=== PATIENT | female | born 1940 | race Caucasian/White ===

== ENCOUNTER 2017-04-16 08:07 | Emergency (ER) | payer MEDICARE ==
[~2017-04-16] VITALS: Ht 170.2 cm; Wt 60.9 kg
[2017-04-16] MEDS ORDERED: OMEPRAZOLE10 MG PO (08:28)
[2017-04-16] MEDS ORDERED: ASPIRIN ADULT L81 M2 PO (08:29)
[2017-04-16] MEDS ORDERED: D32000 UNIT PO (08:29)
[2017-04-16] MEDS ORDERED: MULTI VIT PO (08:30)
[2017-04-16] MEDS ORDERED: MAGIMIN80 MG PO (08:30)
[2017-04-16 08:33] LABS: HEMATOCRIT 40.1 % (37.0-47.0); HEMOGLOBIN 13.5 g/dl (12.0-16.0); IMMATURE GRANULOCYTES 0.4 % (0.0-1.0); MEAN CELL VOLUME 92.2 fL CALC (80.0-100.0); MEAN CORPUSCULAR HGB CONC 33.7 g/L CALC (32.0-36.0); NEUT# 5.19 thou/uL (2.00-7.15); RED BLOOD COUNT 4.35 mill/uL (4.20-5.60); RED CELL DISTRI WIDTH 12.5 % (11.5-15.5)
[2017-04-16 08:45] LABS: ALBUMIN 4.3 g/dL (3.2-5.0); ALKALINE PHOSPHATASE 98 u/l (38-126); ANION GAP 16 (6-22 (CALC)); BILIRUBIN, TOTAL 0.7 mg/dL (0.0-1.4); BUN 10 mg/dL (8-23); BUN/CREATININE RATIO 14 (12-20 (CALC)); CARBON DIOXIDE 29 mmol/l (22-30); CHLORIDE 104 mmol/l (95-108); CREATININE 0.7 mg/dL (0.5-1.0); GFR > 60 ML/MIN (>=60 (CALC)); GFR FOR AFR.AMER. > 60 ML/MIN (>=60 (CALC)); LIPASE 63 u/l (23-300); POTASSIUM 3.9 mmol/l (3.5-5.1); SGOT/AST 27 u/l (9-36); SGPT/ALT 32 u/l (11-66); SODIUM 145 mmol/l (137-146); TOTAL PROTEIN 6.8 g/dL (6.3-8.2)
[2017-04-16 14:16] VITALS: BP 97/62
== END 2017-04-16 14:30 | disposition home or self-care (01) ==
LOC: ED 08:07
PROVIDERS: Emergency Medicine
DX: R10.13 Epigastric pain (principal); R20.2 Paresthesia of skin; K27.9 Peptic ulcer, site unspecified, unspecified as acute or chronic, without hemorrhage or perforation

== ENCOUNTER 2022-05-27 21:32 | Emergency (ER) | payer MEDICARE ==
[~2022-05-27] VITALS: Ht 170.2 cm; Wt 58.9 kg
[~2022-05-27 21:32] MED LIST: ASPIRIN ADULT L81 M2 PO; D32000 UNIT PO; KEFLEX500 M1 PO; MAGIMIN80 MG PO; MULTI VIT PO; OMEPRAZOLE10 MG PO; PYRIDIUM200 MG PO
[2022-05-27 23:21] LABS: BASO% 0.6 % (0-3); EOS% 3.5 % (0-8); HEMOGLOBIN 12.1 g/dl (12.0-16.0); IMMATURE GRANULOCYTES 0.1 % (0.0-5.0); LYMPH% 37.9 % (15-41); MEAN CELL VOLUME 92.7 fL CALC (80.0-100.0); MEAN CORPUSCULAR HGB 30.3 pG CALC (26.0-32.0); MEAN CORPUSCULAR HGB CONC 32.7 g/dL CAL (32.0-36.0); MONO% 9.1 % (2-13); NEUT# 3.32 thou/uL (2.00-7.15); NEUT% 48.8 % (42-76); RED BLOOD COUNT 3.99 mill/uL (4.20-5.60); RED CELL DISTRI WIDTH 12.9 % (11.5-15.5)
[2022-05-27 23:37] LABS: ALBUMIN 4.2 g/dL (3.2-5.0); ALKALINE PHOSPHATASE 65 u/l (38-126); ANION GAP 10 (6-22 (CALC)); BUN 16 mg/dL (8-23); BUN/CREATININE RATIO 24 (12-20 (CALC)); CARBON DIOXIDE 29 mmol/l (22-30); CHLORIDE 103 mmol/l (95-108); CREATININE 0.7 mg/dL (0.5-1.0); GFR FOR AFR.AMER. > 60 ML/MIN (>=60 (CALC)); GFR OTHER RACES > 60 ML/MIN (>=60 (CALC)); POTASSIUM 3.7 mmol/l (3.5-5.1); SGOT/AST 28 u/l (9-36); SODIUM 138 mmol/l (137-146); TOTAL PROTEIN 6.6 g/dL (6.3-8.2)
[2022-05-28] LABS: BILIRUBIN, TOTAL 0.3 mg/dL (0.02-1.3)
[2022-05-28 01:29] LABS: URINE BILIRUBIN - DIPSTICK NEGATIVE (NEGATIVE); URINE BLOOD DIPSTICK TRACE-INTACT (NEGATIVE); URINE COLOR YELLOW; URINE GLUCOSE - DIPSTICK NEGATIVE (NEGATIVE); URINE KETONE NEGATIVE (NEGATIVE); URINE LEUK ESTERASE NEGATIVE (NEGATIVE); URINE PROTEIN - DIPSTICK NEGATIVE (NEG-TRACE); URINE SPECIFIC GRAVITY <=1.005; URINE UROBILINOGEN - DIPSTICK 0.2 E.U./dL (0.2)
[2022-05-28 01:30] LABS: URINE NITRITE - DIPSTICK NEGATIVE (Negative)
[2022-05-28 02:02] VITALS: BP 144/72
== END 2022-05-28 02:17 | disposition home or self-care (01) ==
LOC: ED 21:32
PROVIDERS: Family Medicine
DX: R51.9 Headache, unspecified (principal); R53.1 Weakness; Z73.3 Stress, not elsewhere classified; Z63.6 Dependent relative needing care at home; Z87.11 Personal history of peptic ulcer disease; Z20.822 Contact with and (suspected) exposure to COVID-19